=== PATIENT | female | born 1995 | race American Indian/Alaskan Native ===

== ENCOUNTER 2022-01-18 01:06 | Emergency (ER) | payer SELFPAY ==
--- NOTE | 2022-01-18 01:52 | XRay Report ---
RIGHT LONG FINGER 3 VIEW INDICATION / CLINICAL INFORMATION: right middle finger injured. COMPARISON: None available. FINDINGS: BONES / JOINT(S): No acute fracture or subluxation. No significant arthritis. SOFT TISSUES: No significant abnormality. ADDITIONAL FINDINGS: None. IMPRESSION: 1. No acute findings. Signer Name: Eulogio Lanza MD Signed: 01/18/2022 1:47 AM Workstation Name: [id number]
[2022-01-18] MEDS ORDERED: IBUPROFEN 600 MG TAB PO ONE (02:47)
--- NOTE | 2022-01-18 03:19 | Emergency Department Report ---
ED Upper Extremity Inj HPI - General Chief Complaint: Extremity Injury, Upper Stated Complaint: INJURED RIGHT HAND Source: patient Mode of arrival: Ambulatory Limitations: No Limitations - History of Present Illness Initial Comments: Patient is a 26-year-old -Kitt[place] female with no past medical history presents to the ED with complaint of acute onset persistent right hand and right middle finger pain with swelling after she accidentally slammed car door against her right hand 24 hours ago accidentally. Patient states that the pain has been constant and persistent and that she is unable perform any active range of motion of the right hand because of worsening pain and swelling. Patient denies fall, nausea, vomiting, dizziness, syncope, chest pain or shortness of breath, head or neck injuries or physical assault. MD Complaint: Injury to:: right, hand (right hand), finger (middle finger pain) -: Sudden, hour(s) (24) Other Extremity Injury: Fingers: Right (distal right middle finger ), Hand: Right (right hand pain) Other Injuries: none Place: outdoors, other (Car door closed onto the right hand and right middle finger) Severity scale (0 -10): 7 Improves With: none, rest Worsens With: movement of extremity Context: direct blow, crush, injury, other (Car door hit right hand and right middle finger) Associated Symptoms: denies other symptoms. denies: weakness, numbness, neck pain, suspects foreign body, nausea/vomiting, heard/felt popping sensat - Related Data Previous Rx's Medication Instructions Recorded Last Taken Type Baclofen 20 mg PO Q12H PRN #24 tab 01/18/22 Unknown Rx Ibuprofen [Motrin] 600 mg PO Q8H PRN #30 tablet 01/18/22 Unknown Rx traMADoL [Ultram] 50 mg PO Q6HR PRN #12 tablet 01/18/22 Unknown Rx Allergies Allergy/AdvReac Type Severity Reaction Status Date / Time No Known Allergies Allergy Unverified 01/18/22 01:20 ED Review of Systems ROS: Stated complaint: INJURED RIGHT HAND Other details as noted in HPI Constitutional: denies: chills, fever Eyes: denies: eye pain, eye discharge, vision change ENT: denies: ear pain, throat pain Respiratory: denies: cough, shortness of breath, wheezing Cardiovascular: denies: chest pain, palpitations Endocrine: no symptoms reported Gastrointestinal: denies: abdominal pain, nausea, diarrhea Genitourinary: denies: urgency, dysuria, discharge Musculoskeletal: joint swelling (Right hand pain and swelling), arthralgia (Right hand pain and swelling). denies: back pain Skin: denies: rash, lesions Neurological: denies: headache, weakness, paresthesias Psychiatric: denies: anxiety, depression Hematological/Lymphatic: denies: easy bleeding, easy bruising ED Past Medical Hx - Medications Home Medications: Home Medications Medication Instructions Recorded Confirmed Last Taken Type Baclofen 20 mg PO Q12H PRN #24 tab 01/18/22 Unknown Rx Ibuprofen [Motrin] 600 mg PO Q8H PRN #30 tablet 01/18/22 Unknown Rx traMADoL [Ultram] 50 mg PO Q6HR PRN #12 tablet 01/18/22 Unknown Rx ED Physical Exam - General Limitations: No Limitations General appearance: alert, in no apparent distress - Head Head exam: Present: atraumatic, normocephalic, normal inspection - Eye Eye exam: Present: normal appearance, PERRL, EOMI Pupils: Present: normal accommodation - ENT ENT exam: Present: normal exam, normal orophraynx, mucous membranes moist, TM's normal bilaterally, normal external ear exam - Neck Neck exam: Present: normal inspection, full ROM. Absent: tenderness - Respiratory Respiratory exam: Present: normal lung sounds bilaterally. Absent: respiratory distress, wheezes, rales, rhonchi, chest wall tenderness, accessory muscle use - Cardiovascular Cardiovascular Exam: Present: regular rate, normal rhythm, normal heart sounds. Absent: systolic murmur, diastolic murmur, rubs, gallop - GI/Abdominal GI/Abdominal exam: Present: soft, normal bowel sounds. Absent: tenderness, hyperactive bowel sounds, hypoactive bowel sounds, mass - Extremities Exam Extremities exam: Present: normal inspection, tenderness (Palpable right hand tenderness with limited range of motion due to pain), normal capillary refill, joint swelling (Right hand swelling and tenderness). Absent: full ROM (Limited range of motion of right hand due to pain), pedal edema, calf tenderness - Back Exam Back exam: Present: normal inspection, full ROM. Absent: tenderness, CVA tenderness (R), CVA tenderness (L), muscle spasm, paraspinal tenderness, vertebral tenderness - Neurological Exam Neurological exam: Present: alert, oriented X3, CN II-XII intact, normal gait, reflexes normal - Psychiatric Psychiatric exam: Present: normal affect, normal mood - Skin Skin exam: Present: warm, dry, intact, normal color. Absent: rash ED Course Vital Signs 01/18/22 01/18/22 01/18/22 01:23 03:07 04:02 Temperature 98.8 F Pulse Rate 66 66 Respiratory 16 16 12 Rate Blood Pressure 121/84 Blood Pressure 123/68 [Right] O2 Sat by Pulse 97 100 Oximetry ED Medical Decision Making - Radiology Data Radiology results: report reviewed, image reviewed [facility] [address] [place] [address] XRay Report Signed Patient: NURA ROLON MR#: [id number] : 1995 Acct:[id number] Age/Sex: 26 / F ADM Date: 01/18/22 Loc: ED Attending Dr: Ordering Physician: ED MD DAVINA Date of Service: 01/18/22 Procedure(s): XR finger(s) 2+V RT Accession Number(s): [id number] cc: ED MD DAVINA Fluoro Time In Minutes: RIGHT LONG FINGER 3 VIEW INDICATION / CLINICAL INFORMATION: right middle finger injured. COMPARISON: None available. FINDINGS: BONES / JOINT(S): No acute fracture or subluxation. No significant arthritis. SOFT TISSUES: No significant abnormality. ADDITIONAL FINDINGS: None. IMPRESSION: 1. No acute findings. Signer Name: Eulogio Lanza MD Signed: 01/18/2022 1:47 AM Workstation Name: [id number] Transcribed By: DOC Dictated By: Eulogio Lanza MD Electronically Authenticated By: Eulogio Lanza MD Signed Date/Time: 01/18/22146 DD/ 6 TD/TT: - Medical Decision Making This is a 26-year-old -Kitt[place] female with no past medical history presents to the ED with complaint of acute onset persistent right hand and right middle finger pain with swelling after she accidentally slammed car door against her right hand 24 hours ago accidentally. Patient states that the pain has been constant and persistent and that she is unable perform any active range of motion of the right hand because of worsening pain and swelling. In the ED, patient is alert and oriented x3 and is not in any distress but appears to be in significant pain. Patient was treated for pain in the ED. Right hand x-ray showed no acute fractures or subluxations. On reevaluation, patient's pain is well controlled medication. Patient will discharge home on pain medications and advised to follow-up with her primary care physician in 7 to 10 days for re evaluation or return to the ED immediately if symptoms get worse. - Differential Diagnosis Hand fracture; middle finger fracture; hand contusion; hand sprain Critical care attestation.: If time is entered above; I have spent that time in minutes in the direct care of this critically ill patient, excluding procedure time. ED Disposition Clinical Impression: Sprain of right middle finger Qualifiers: Encounter type: initial encounter Sprain of finger site: interphalangeal joint Qualified Code(s): S63.632A - Sprain of interphalangeal joint of right middle finger, initial encounter Contusion of right hand including fingers Qualifiers: Encounter type: initial encounter Qualified Code(s): S60.221A - Contusion of right hand, initial encounter Sprain of carpometacarpal joint of right hand Qualifiers: Encounter type: initial encounter Qualified Code(s): S63.8X1A - Sprain of other part of right wrist and hand, initial encounter Disposition: 01 HOME / SELF CARE / HOMELESS Is pt being admited?: No Does the pt Need Aspirin: No Condition: Stable Instructions: Intermetacarpal Sprain, Hand Contusion, [id number], Finger Sprain, Adult, [id number] Additional Instructions: Right hand x-ray showed no acute fractures of right hand or right middle finger. Therefore your injury is likely musculoskeletal following the injury 24 hours ago. Therefore take medication as needed for pain, drink plenty of fluids and follow-up with your primary care physician in 7 to 10 days for reevaluation. Return to the ED immediately if symptoms get worse. Prescriptions: Baclofen 20 mg PO Q12H PRN #24 tab PRN Reason: Muscle Spasm Ibuprofen [Motrin] 600 mg PO Q8H PRN #30 tablet PRN Reason: Pain traMADoL [Ultram] 50 mg PO Q6HR PRN #12 tablet PRN Reason: Pain Referrals: [facility] [Provider Group] - 7-10 days Forms: Work/School Release Form(ED) Time of Disposition: 03:17 Print Language: JAPANESE
[2022-01-18 04:03] VITALS: BP 123/68
== END 2022-01-18 04:03 | disposition home or self-care (01) ==
LOC: ED 01:06
DX: S63.632A Sprain of interphalangeal joint of right middle finger, initial encounter (principal); S63.8X1A Sprain of other part of right wrist and hand, initial encounter; X50.1XXA Overexertion from prolonged static or awkward postures, initial encounter; Y93.89 Activity, other specified; Y92.89 Other specified places as the place of occurrence of the external cause; Y99.8 Other external cause status
CPT/HCPCS: 99283